=== PATIENT | female | born 1950 | race African-American/Black ===

== ENCOUNTER → 2020-12-02 14:12 | Outpatient (BNVA) | payer OTHER, SELFPAY | PROVIDERS: Visit Provider Hospitalist | DX: Z13.89 Encounter for screening for other disorder (principal) | CPT/HCPCS: Q3014 ==

== ENCOUNTER 2020-12-04 16:12 | Outpatient (REF) | payer MEDICARE, SELFPAY ==
--- NOTE | ~2020-12-04 | XR_ITS ---
EXAMINATION: XR CHEST CLINICAL INFORMATION: Sequelae of an infectious or other parasitic diseases. COMPARISON: None TECHNIQUE: 2 views of the chest were obtained. FINDINGS: No significant abnormality is noted involving the heart, lungs, mediastinum, bony thorax or soft tissues. XR/XR chest 2V IMPRESSION: No acute cardiopulmonary process.
[2020-12-04 17:10] LABS: MANUAL DIFF FLAG NO
[2020-12-04 17:15] LABS: Basophils Absolute Auto 0.1 X10*3/uL (0.0-0.2); Eosinophils Absolute Auto 0.4 X10*3/uL (0.0-0.4); Eosinophils Percent Auto 3.3 % (0-4); Hematocrit 42.3 % (37-47); Hemoglobin 14.5 g/dl (12.0-16.0); Imm Gran Abs Auto 0.04 X10*3/uL (0.00-0.03); Imm Gran Pct Auto 0.4 % (0.0-0.4); Lymphocytes Absolute Auto 3.3 X10*3/uL (1.2-4.9); Lymphocytes Percent Auto 31.7 % (20-40); Mean Corpuscular HGB Conc 34.3 g/dl (31.0-35.0); Mean Corpuscular Hemoglobin 31.2 pg (27.0-33.0); Mean Platelet Volume 11.4 fL (9.4-12.3); Monocytes Percent Auto 9.2 % (2-11); Neutrophils Absolute Auto 5.7 X10*3/uL (2.0-8.3); Neutrophils Percent Auto 54.4 % (45-73); Platelet Count 284 X10*3/uL (160-400); Red Blood Count 4.65 X10*6/uL (4.20-5.50); Red Cell Distribution Width 12.9 % (11.0-16.0); White Blood Count 10.5 X10*3/uL (4.8-10.8)
[2020-12-04 18:10] LABS: Erythrocyte Sedimentation Rate 7 MM/HR (0-20)
[2020-12-05 04:11] LABS: SARS COV2 IgG Positive (Negative)
== END 2020-12-04 16:13 | disposition home or self-care (01) ==
LOC: HO.LAB 16:12
PROVIDERS: Visit Provider Hospitalist
DX: Z20.822 Contact with and (suspected) exposure to COVID-19 (principal); B94.8 Sequelae of other specified infectious and parasitic diseases
CPT/HCPCS: 36415; 71046; 85025; 85652; 86769

== ENCOUNTER → 2021-04-02 13:04 | Outpatient (BNVA) | payer MEDICARE, SELFPAY | PROVIDERS: Visit Provider Hospitalist | DX: J45.40 Moderate persistent asthma, uncomplicated (principal); I27.82 Chronic pulmonary embolism; G47.33 Obstructive sleep apnea (adult) (pediatric); Z99.89 Dependence on other enabling machines and devices | CPT/HCPCS: 99212 ==

== ENCOUNTER → 2021-10-08 12:49 | Outpatient (BNVA) | payer MEDICARE, SELFPAY | PROVIDERS: PCP Internal Medicine; Visit Provider Hospitalist | DX: J45.40 Moderate persistent asthma, uncomplicated (principal); I27.82 Chronic pulmonary embolism; G47.33 Obstructive sleep apnea (adult) (pediatric); Z99.89 Dependence on other enabling machines and devices | CPT/HCPCS: 99212 ==

== ENCOUNTER → 2022-02-04 13:25 | Outpatient (BNVA) | payer MEDICARE, SELFPAY | PROVIDERS: PCP Internal Medicine; Visit Provider Hospitalist | DX: J45.40 Moderate persistent asthma, uncomplicated (principal); I27.82 Chronic pulmonary embolism; G47.33 Obstructive sleep apnea (adult) (pediatric); Z79.01 Long term (current) use of anticoagulants; Z79.899 Other long term (current) drug therapy; Z99.89 Dependence on other enabling machines and devices | CPT/HCPCS: 99212 ==

== ENCOUNTER → 2022-10-07 13:43 | Outpatient (BNVA) | payer OTHER, SELFPAY | PROVIDERS: PCP Internal Medicine; Visit Provider Hospitalist | DX: J45.40 Moderate persistent asthma, uncomplicated (principal); I27.82 Chronic pulmonary embolism; G47.33 Obstructive sleep apnea (adult) (pediatric); Z79.899 Other long term (current) drug therapy; Z99.89 Dependence on other enabling machines and devices | CPT/HCPCS: 99212 ==

== ENCOUNTER 2023-07-22 09:26 | Outpatient (AMB) | payer OTHER, SELFPAY ==
[2023-07-22 09:41] VITALS: PULSE 86; O2SAT 98; BMI 30.4
--- NOTE | 2023-07-22 09:41 | A.OFFVIS_ITS ---
Intake Vital Signs 07/22/23 09:41 Height 4 ft 11 in Weight 150 lb 9.211 oz BMI 30.4 Pulse 86 Pulse Source Pulse Oximeter Pulse Oximetry (%) 98 Oxygen Delivery Method Room Air Intake Visit Reasons: Asthma Allergies acetaminophen [Percocet] Allergy (Severe, Verified 07/22/23 09:43) Rash and Vomitting apixaban Allergy (Severe, Verified 07/22/23 09:43) Rash and Vomitting metformin Allergy (Severe, Verified 07/22/23 09:43) Anaphylaxis oxycodone [Percocet] Allergy (Severe, Verified 07/22/23 09:43) Anaphylaxis rivaroxaban [Xarelto] Allergy (Severe, Verified 07/22/23 09:43) Anaphylaxis Codeine Allergy (Severe, Uncoded 07/22/23 09:43) Anaphylaxis morphine Allergy (Severe, Uncoded 07/22/23 09:43) Anaphylaxis Tramadol Allergy (Severe, Uncoded 07/22/23 09:43) Anaphylaxis HPI HPI Comments History of Present Illness Details The patient is 72 y/o woman with a 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 She has failed Coumadin in also Xarelto in Eliquis primarily due to side effects which include severe headaches. Current meds she is on fondaparinux with very good effect. Her respiratory status has been stable. She does have a history of asthma and has a short-acting beta agonist at that she uses as needed. She has not had to use it in the last few weeks. Her major issue is that she hurt her left shoulder. She did have an MRI demonstrating what appears to be a full tear of the supraspinatus tendon. She is following up with her orthopedic surgeon tomorrow about potentially having surgery. She is very concerned about having surgery at this time. 05/28/2020 the patient is here for pulmonary follow-up visit. Her resp iratory status has significantly improved when she was switched over to the trelegy inhaler. She has not had to use her rescue inhaler at this time. She continues to have shortness of breath at times. She also has aches in her calves that have to do with her varicose veins. 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 She has been taking the fondaparinux with very good effect. She does not have any significant side effects like she did with the other medications. She continues uses CPAP therapy. The CPAP therapy continues to be affecting beneficial. She does use it for more than 4 hours a night. However, she needs a new mask. Based on the fact that she once a fullface mask I will request an F30 mask for her. 12/02/2020 the patient has a telephone visit today. She recently recovered from COVID-19. She was admitted with pneumonia to the hospital and did require oxygen for appeared of time. She also was told she had evidence of clotting. She had been on the fondaparinux. She seems to respond well to this injection for her history of hypercoagulable state. In the meantime the patient has been using her CPAP. The CPAP therapy continues to be affecting beneficial. She does use it for more than 4 hours a night. However, after having COVID she was concerned about contaminating the machine. She also was staining [place] when she was in quarantine and she needs to get her electric blood for the CPAP so she can start using it. In the meantime she needs to have a new mask and tubing sent after having COVID and concerns of a contamination. She use requesting a smaller mask, p10. Will request that from the [facility]. She will have blood work in addition to chest x-ray whenever she can come into the hospital safely get those done. 10/08/2021 the patient is here for pulmonary follow-up visit. Since we last spoke the patient has been doing relatively well from a respiratory status. The Trelegy has been very effective for her. She rarely has to use her rescue inhaler. She continues on the antithrombotic therapy for her history of recurrent blood clots. She does have significant varicose veins and is complaining of significant right lower extremity discomfort at this time. She does not have a cord. The patient has not had any evidence of any recurrent c lots while taking the fondaparinux. in the meantime she was not able to get a new CPAP. Has not been 5 years. The patient did bring her CPAP and and I adjusted the pressures some. Also provide her with a different mask, F30 small the seems to work better for her. 02/04/2022 the patient is here for a pulmonary follow-up visit. She continues doing well from a respiratory status. She continues on the inhalers which she is tolerating well. Has not had to use any rescue medication on prednisone. The patient continues on the fondaparinux with good effect. No evidence of any recurrent blood clots. She recently did have interventions for her veins and has discomfort at this time. But nothing that she has had before. She is using the CPAP at nighttime. Unfortunate CPAP is no longer working appropriately. She did call her insurance company in spoke to her counseling case manager and they were trying to assist her in order to get a new CPAP. I will put in a new order to get any CPAP based on the malfunctioning machine. Her machine is also a [employer] it is likely also in the recall. Therefore did provide her with a number to [employer] or she can call and claim a replacement machine as well. This process may take up to a year. 10/07/2022 the patient is here for a pulmonary follow-up visit. Since we last spoke the patient has been admitted to the hospital couple times. One was for the flu which she developed significant symptoms. Also she was admitted with dizziness would appear to be benign positional vertigo. Those symptoms have now received subsided. She is back to her baseline. The patient has responded well to her current respiratory regimen which includes Trelegy. She has not required any short-acting beta agonist. Except when she had the flu. The patient also has been using her CPAP. The CPAP therapy continues to be affecting beneficial. However, she is having difficulties with her mask. I did provide her with a different fullface mask, F20 small which seems to fit her very well and I do believe she would do better with. She did bring her machine but the cord was not available to turn it on in adjusted. If the patient has any difficulty after trying a new mask that she can always make an appointment in bring her machine in so we can adjust that. The patient also continues with the fondaparinux for history of unprovoked PE as well as lower extremity DVTs. She has responded very well to this medicine. 07/22/2023 the patient is here for a pulmonary follow-up visit. Patient overall has been doing well. She continues on the fondaparinux. The fundal paradox has been very helpful. She takes 5 mg daily. However, sometimes she takes breaks from the shots because they hurt. Sometimes she stops for a week and she is gone up to 2 weeks without taking the shots. But, then she starts developing again soreness of her legs and calves and thighs like she typically had when she had blood clots. Therefore she understands that she needs to be on the shots in this are lifelong since she is had multiple recurrent clots already. One option as far as continuing the prophylactic dose of fondaparinux she can try taking it every other day as it has been shown to be prophylactically helpful when using this fashion. However, if she does develop any symptoms or signs of clots then she needs to start taking it daily. the patient also continues hears her CPAP the CPAP therapy continues to be affecting beneficial. Although, she is no longer getting supplies from the [employer] company. The patient is no longer active with a [employer] company and therefore the only way for her to get supplies again would be to reorder the sleep study. Therefore, will have her undergo home sleep study at this time. Once we document again that she has sleep apnea based on the study we can then request supplies from the [facility]. As far as her asthma seems to be well controlled right now she does have a rescue inhaler that she has not required. She continues use Trelegy daily. Although, does complain of worsening allergy symptoms. [facility] Medical History (Updated 07/24/23 @ 22:09 by Jones Goel MD) Chronic allergic rhinitis Asthma Pulmonary emboli RICCARDO on CPAP Post-COVID syndrome Social History (Updated 04/02/21 @ 13:19 by MICHELLE Campo) Patient Tobacco Use Status: Never used Tobacco Review of Systems Const Denies night sweats ENT Denies change in voice, Denies lip swelling, Denies mouth pain, Reports nasal congestion, Reports nasal discharge and Denies tongue swelling Card Denies chest pain Resp Reports cough GI Denies abdominal pain Musc Denies no additional complaints Neuro Denies Neuro-related abnormal movements Psych Denies no additional complaints Aguilar/Lymph Denies easy bleeding and Denies lymphadenopathy Aller/Immun Denies lip swelling and Denies tongue swelling Physical Exam Vital Signs: Last Vital Signs Pulse 86 07/22/23 09:41 Pulse Ox 98 07/22/23 09:41 Oxygen Delivery Method Room Air 07/22/23 09:41 BMI result Body Mass Index 30.4 Const General: alert Neck Neck: Yes normal visual inspection, Yes full ROM and Yes no lymphadenopathy Chest Chest palpation & inspection: normal inspection of the chest Resp Auscultation: clear to auscultation bilaterally Cardio Rate: regular rate Rhythm: regular rhythm Heart sounds: S1 normal heart sound present and S2 normal heart sound present GI Palpation (GI): Soft to palpation and nontender Auscultation: normal bowel sounds Skin General skin exam: rashes and/or lesions noted Assessment & Plan Assessment & Plan (1) Asthma: Code(s): J45.909 - Unspecified asthma, uncomplicated Qualifiers: Asthma complication type: uncomplicated Asthma persistence: persistent Asthma severity: moderate Qualified Code(s): J45.40 - Moderate persistent asthma, uncomplicated (2) Pulmonary emboli: Code(s): I26.99 - Other pulmonary embolism without acute cor pulmonale Qualifiers: Acute cor pulmonale presence: without acute cor pulmonale Chronicity: chronic Pulmonary embolism type: unspecified Qualified Code(s): I27.82 - Chronic pulmonary embolism (3) RICCARDO on CPAP: Code(s): G47.33 - Obstructive sleep apnea (adult) (pediatric); Z99.89 - Dependence on other enabling machines and devices (4) Chronic allergic rhinitis: Code(s): J30.9 - Allergic rhinitis, unspecified Plan continues CPAP therapy, provided with a new mask F20 small. Needs a home sleep sudy re activate with a [facility] [facility] for the CPAP supplies. continue Trelegy 100 daily short-acting beta agonist as needed continue singular and Claritin Bloodwork/allergy testing continue fondaparinux, trial every other day follow-up in 6-8 months Orders: Orders Basic Metabolic Panel 07/22/23 J45.909 - Unspecified asthma, uncomplicated Immunoglobulin E 07/22/23 J45.909 - Unspecified asthma, uncomplicated RT home sleep study 07/22/23 G47.33 - Obstructive sleep apnea (adult) (pediatric), Z99.89 - Dependence on other enabling machines and devices Complete Blood Count Auto Diff 07/22/23 J45.909 - Unspecified asthma, uncomplicated Rast Allergen 07/22/23 J45.909 - Unspecified asthma, uncomplicated Hypersensitive Pneumonitis Prf 07/22/23 J45.909 - Unspecified asthma, uncomplicated, R91.8 - Other nonspecific abnormal finding of lung field Coding Level of Care Code Est Pt Level 4 (61290) Diagnoses Moderate persistent asthma without complication J45.40 Asthma complication type: uncomplicated Asthma persistence: persistent Asthma severity: moderate Chronic pulmonary embolism without acute cor pulmonale, unspecified pulmonary embolism type I27.82 Acute cor pulmonale presence: without acute cor pulmonale Chronicity: chronic Pulmonary embolism type: unspecified RICCARDO on CPAP G47.33; Z99.89 Chronic allergic rhinitis J30.9 Time Spent (min) 17
== END 2023-07-22 10:22 | disposition home or self-care (01) ==
PROVIDERS: PCP Internal Medicine; Visit Provider Hospitalist
DX: J45.40 Moderate persistent asthma, uncomplicated (principal); I27.82 Chronic pulmonary embolism; G47.33 Obstructive sleep apnea (adult) (pediatric); Z99.89 Dependence on other enabling machines and devices; J30.9 Allergic rhinitis, unspecified
CPT/HCPCS: 99214

== ENCOUNTER 2023-07-22 09:26 | Outpatient (REF) | payer OTHER, SELFPAY ==
[2023-07-22 10:36] LABS: MANUAL DIFF FLAG NO
[2023-07-22 11:08] LABS: Basophils Absolute Auto 0.1 X10*3/uL (0.0-0.2); Basophils Percent Auto 0.8 % (0-2); Eosinophils Absolute Auto 0.3 X10*3/uL (0.0-0.4); Eosinophils Percent Auto 2.7 % (0-4); Hematocrit 43.5 % (37.0-47.0); Hemoglobin 14.9 g/dl (12.0-16.0); Imm Gran Abs Auto 0.03 X10*3/uL (0.00-0.03); Imm Gran Pct Auto 0.3 % (0.0-0.4); Lymphocytes Absolute Auto 3.1 X10*3/uL (1.2-4.9); Lymphocytes Percent Auto 28.8 % (20-40); Mean Corpuscular HGB Conc 34.3 g/dl (31.0-35.0); Mean Corpuscular Volume 90.4 fL (80.0-98.0); Mean Platelet Volume 11.2 fL (9.4-12.3); Monocytes Absolute Auto 0.8 X10*3/uL (0.1-1.2); Monocytes Percent Auto 7.1 % (2-11); Neutrophils Absolute Auto 6.6 x10*3/uL (2.0-8.3); Neutrophils Percent Auto 60.3 % (45-73); Platelet Count 272 X10*3/uL (160-400); Red Blood Count 4.81 X10*6/uL (4.20-5.50); Red Cell Distribution Width 12.5 % (11.0-16.0); White Blood Count 10.9 X10*3/uL (4.8-10.8)
[2023-07-22 11:36] LABS: Anion Gap 14 (12-20); Blood Urea Nitrogen 18 mg/dL (9-16); Calcium 9.1 mg/dL (8.4-10.2); Carbon Dioxide 21 mmol/L (22-29); Chloride 108 mmol/L (96-108); Estimated Glomerular Filt Rate > 60; Glucose Random 128 mg/dL (60-115); Potassium 4.2 mmol/L (3.3-5.1); Sodium 139 mmol/L (135-145)
[2023-07-25 18:43] LABS: Immunoglobulin E 164 kU/L (<OR=114)
[2023-07-30 16:28] LABS: Asperg fumigatus Precip Abs NEGATIVE (NEGATIVE); Micropoly faeni Abs NEGATIVE (NEGATIVE); Pigeon serum Abs NEGATIVE (NEGATIVE); Saccharo pora viridis Abs NEGATIVE (NEGATIVE); Thermo candidus Abs NEGATIVE (NEGATIVE); Thermoa vulgaris #1 NEGATIVE (NEGATIVE)
== END 2023-07-22 09:27 | disposition home or self-care (01) ==
LOC: HO.LAB 09:26
PROVIDERS: PCP Internal Medicine; Visit Provider Hospitalist
DX: J45.909 Unspecified asthma, uncomplicated (principal); R91.8 Other nonspecific abnormal finding of lung field; Z91.09 Other allergy status, other than to drugs and biological substances
CPT/HCPCS: 36415; 80048; 82785; 85025; 86003; 86331; 86606; 86609; 99212

== ENCOUNTER → 2023-08-31 15:22 | Outpatient (REF) | payer OTHER, SELFPAY | LOC: HO.SL 15:22 | PROVIDERS: PCP Internal Medicine; Visit Provider Hospitalist | DX: G47.33 Obstructive sleep apnea (adult) (pediatric) (principal); Z99.89 Dependence on other enabling machines and devices | CPT/HCPCS: 95806 ==

== ENCOUNTER → 2023-08-31 15:39 | Outpatient (BNV) | payer OTHER, SELFPAY | PROVIDERS: PCP Internal Medicine; Visit Provider Internal Medicine | DX: R06.83 Snoring (principal) | CPT/HCPCS: 95806 ==

== ENCOUNTER 2024-01-10 14:36 | Outpatient (AMB) | payer OTHER, SELFPAY ==
[2024-01-10 14:52] VITALS: PULSE 80; O2SAT 95; BMI 27.3
--- NOTE | 2024-01-10 14:52 | MHC.OFFVIS ---
Intake Vital Signs 01/10/24 14:52 Height 4 ft 11 in Weight 135 lb BMI 27.3 Pulse 80 Pulse Source Pulse Oximeter Pulse Oximetry (%) 95 Oxygen Delivery Method Room Air Intake Visit Reasons: Obstructive sleep apnea [employer] Required: No Allergies acetaminophen [Percocet] Allergy (Severe, Verified 01/10/24 14:53) Rash and Vomitting apixaban Allergy (Severe, Verified 01/10/24 14:53) Rash and Vomitting metformin Allergy (Severe, Verified 01/10/24 14:53) Anaphylaxis oxycodone [Percocet] Allergy (Severe, Verified 01/10/24 14:53) Anaphylaxis rivaroxaban [Xarelto] Allergy (Severe, Verified 01/10/24 14:53) Anaphylaxis Codeine Allergy (Severe, Uncoded 01/10/24 14:53) Anaphylaxis morphine Allergy (Severe, Uncoded 01/10/24 14:53) Anaphylaxis Tramadol Allergy (Severe, Uncoded 01/10/24 14:53) Anaphylaxis HPI HPI Comments History of Present Illness Details The patient is 73 y/o woman with a 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 She has failed Coumadin in also Xarelto in Eliquis primarily due to side effects which include severe headaches. Current meds she is on fondaparinux with very good effect. Her respiratory status has been stable. She does have a history of asthma and has a short-acting beta agonist at that she uses as needed. She has not had to use it in the last few weeks. Her major issue is that she hurt her left shoulder. She did have an MRI demonstrating what appears to be a full tear of the supraspinatus tendon. She is following up with her orthopedic surgeon tomorrow about potentially having surgery. She is very concerned about having surgery at this time. 07/22/2023 the patient is here for a pulmonary follow-up visit. Patient overall has been doing well. She continues on the fondaparinux. The fundal paradox has been very helpful. She takes 5 mg daily. However, sometimes she takes breaks from the shots because they hurt. Sometimes she stops for a week and she is gone up to 2 weeks without taking the shots. But, then she starts developing again soreness of her legs and calves and thighs like she typically had when she had blood clots. Therefore she understands that she needs to be on the shots in this are lifelong since she is had multiple recurrent clots already. One option as far as continuing the prophylactic dose of fondaparinux she can try taking it every other day as it has been shown to be prophylactically helpful when using this fashion. However, if she does develop any symptoms or signs of clots then she needs to start taking it daily. the patient also continues hears her CPAP the CPAP therapy continues to be affecting beneficial. Although, she is no longer getting supplies from the [employer]. The patient is no longer active with a [employer] and therefore the only way for her to get supplies again would be to reorder the sleep study. Therefore, will have her undergo home sleep study at this time. Once we document again that she has sleep apnea based on the study we can then request supplies from the [employer]. As far as her asthma seems to be well controlled right now she does have a rescue inhaler that she has not required. She continues use Trelegy daily. Although, does complain of worsening allergy symptoms. 01/10/2024 the patient is here for pulmonary follow-up visit. Since we last spoke the patient had a bad fall and she was admitted to the hospital. She fractured her right humerus. History of she CT she on the blood tolerating well. She had another fall hurting her leg. She was all booster. No DVT documented which is reassuring. She continues on the fondaparinux. Now after the fall she has been taking it daily. She is unsteady in her feet. She is going to be following up with her primary care doctor. She needs to make sure to ask for a cane review of her unsteadiness on her feet. She is high risk because of the blood thinners. She needs be very careful. The patient also has been using the CPAP. The CPAP therapy very affecting beneficial for her. She does try to use it more than 4 hours a night. However, she has no longer active with the [employer]. We tried ordering a sleep study but she had a hard time setting it up. The sleep study which was a home sleep study did not demonstrate any evidence of any sleep apnea. Although very limited without any evidence of any obstructions at all. Therefore believe the patient did not have an optimal study and she did not set up right. I am going to request an in-lab sleep study for that reason. She does have daytime drowsiness when she does not use CPAP. Her [place] score is elevated 12/24 when she does not use CPAP. [facility] Medical History (Updated 07/24/23 @ 22:09 by Jones Goel MD) Chronic allergic rhinitis Asthma Pulmonary emboli RICCARDO on CPAP Post-COVID syndrome Social History (Updated 04/02/21 @ 13:19 by MICHELLE Campo) Patient Tobacco Use Status: Never used Tobacco Review of Systems Const Reports frequent falls and Denies night sweats ENT Denies change in voice, Denies lip swelling, Denies mouth pain, Reports nasal congestion, Reports nasal discharge and Denies tongue swelling Card Denies chest pain Resp Reports cough GI Denies abdominal pain Musc Denies no additional complaints and Reports abnormal gait Neuro Denies Neuro-related abnormal movements, Reports abnormal gait and Reports frequent falls Psych Denies no additional complaints Aguilar/Lymph Denies easy bleeding and Denies lymphadenopathy Aller/Immun Denies lip swelling and Denies tongue swelling Physical Exam Vital Signs: Last Vital Signs Pulse 80 01/10/24 14:52 Pulse Ox 95 01/10/24 14:52 Oxygen Delivery Method Room Air 01/10/24 14:52 BMI result Body Mass Index 27.3 Const General: alert Neck Neck: Yes normal visual inspection, Yes full ROM and Yes no lymphadenopathy Chest Chest palpation & inspection: normal inspection of the chest Resp Auscultation: clear to auscultation bilaterally Cardio Rate: regular rate Rhythm: regular rhythm Heart sounds: S1 normal heart sound present and S2 normal heart sound present GI Palpation (GI): Soft to palpation and nontender Auscultation: normal bowel sounds Skin General skin exam: rashes and/or lesions noted Assessment & Plan Assessment & Plan (1) Asthma: Code(s): J45.909 - Unspecified asthma, uncomplicated Qualifiers: Asthma complication type: uncomplicated Asthma persistence: persistent Asthma severity: moderate Qualified Code(s): J45.40 - Moderate persistent asthma, uncomplicated (2) Pulmonary emboli: Code(s): I26.99 - Other pulmonary embolism without acute cor pulmonale Qualifiers: Acute cor pulmonale presence: without acute cor pulmonale Chronicity: chronic Pulmonary embolism type: unspecified Qualified Code(s): I27.82 - Chronic pulmonary embolism (3) RICCARDO on CPAP: Code(s): G47.33 - Obstructive sleep apnea (adult) (pediatric); Z99.89 - Dependence on other enabling machines and devices (4) Chronic allergic rhinitis: Code(s): J30.9 - Allergic rhinitis, unspecified Plan continues CPAP therapy, provided with a new mask F20 small. Needs a sleep sudy re activate with a [employer] for the CPAP supplies. continue Trelegy 100 daily short-acting beta agonist as needed continue singular and Claritin allergy avoidance continue fondaparinux, every other day is ok follow-up in 3-4 months Orders: Orders RT PSG in-lab sleep study Today G47.33 - Obstructive sleep apnea (adult) (pediatric), Z99.89 - Dependence on other enabling machines and devices Coding Level of Care Code Est Pt Level 4 (74566) Diagnoses Moderate persistent asthma without complication J45.40 Asthma complication type: uncomplicated Asthma persistence: persistent Asthma severity: moderate Chronic pulmonary embolism without acute cor pulmonale, unspecified pulmonary embolism type I27.82 Acute cor pulmonale presence: without acute cor pulmonale Chronicity: chronic Pulmonary embolism type: unspecified RICCARDO on CPAP G47.33; Z99.89 Chronic allergic rhinitis J30.9 Time Spent (min) 17
== END 2024-01-10 15:20 | disposition home or self-care (01) ==
PROVIDERS: PCP Internal Medicine; Visit Provider Internal Medicine
DX: J45.40 Moderate persistent asthma, uncomplicated (principal); I27.82 Chronic pulmonary embolism; G47.33 Obstructive sleep apnea (adult) (pediatric); Z99.89 Dependence on other enabling machines and devices; J30.9 Allergic rhinitis, unspecified
CPT/HCPCS: 99214

== ENCOUNTER → 2024-01-10 14:36 | Outpatient (BNVA) | payer OTHER, SELFPAY | PROVIDERS: PCP Internal Medicine; Visit Provider Internal Medicine | DX: J45.40 Moderate persistent asthma, uncomplicated (principal); J30.9 Allergic rhinitis, unspecified | CPT/HCPCS: 99212 ==

== ENCOUNTER → 2024-02-13 20:30 | Outpatient (REF) | payer OTHER, SELFPAY | LOC: HO.SL 20:30 | PROVIDERS: Visit Provider Hospitalist | DX: G47.33 Obstructive sleep apnea (adult) (pediatric) (principal); Z99.89 Dependence on other enabling machines and devices | CPT/HCPCS: 95810 ==

== ENCOUNTER → 2024-02-13 20:58 | Outpatient (BNV) | payer OTHER, SELFPAY | PROVIDERS: Visit Provider Internal Medicine | DX: R06.83 Snoring (principal) | CPT/HCPCS: 95810 ==

== ENCOUNTER 2024-08-23 13:49 | Outpatient (AMB) | payer OTHER, SELFPAY ==
--- NOTE | 2024-08-23 14:05 | A.OFFVIS_ITS ---
Vital Signs 08/23/24 14:06 Weight 138 lb 14.259 oz BP 126/66 Blood Pressure Location Lt brachial Position Sitting Pulse 87 Pulse Source Pulse Oximeter Pulse Oximetry (%) 97 Oxygen Delivery Method Room Air Intake Visit Reasons: riccardo Allergies acetaminophen [Percocet] Allergy (Severe, Verified 08/23/24 14:10) Rash and Vomitting apixaban Allergy (Severe, Verified 08/23/24 14:10) Rash and Vomitting metformin Allergy (Severe, Verified 08/23/24 14:10) Anaphylaxis oxycodone [Percocet] Allergy (Severe, Verified 08/23/24 14:10) Anaphylaxis rivaroxaban [Xarelto] Allergy (Severe, Verified 08/23/24 14:10) Anaphylaxis Codeine Allergy (Severe, Uncoded 08/23/24 14:10) Anaphylaxis morphine Allergy (Severe, Uncoded 08/23/24 14:10) Anaphylaxis Tramadol Allergy (Severe, Uncoded 08/23/24 14:10) Anaphylaxis Medication List - Last Reconciled 08/23/24 by Myrtle Maynard LPN acetaminophen ER 650 mg PO BID albuterol sulfate 2.5 mg (3 mL) inhalation Q4H PRN aspirin 81 mg PO DAILY atorvastatin 20 mg PO DAILY calcium carbonate-vitamin D3 600 mg-20 mcg (800 unit) 1 tab PO BID cholecalciferol (vitamin D3) 50 mcg PO DAILY cholecalciferol (vitamin D3) 50 mcg PO DAILY comp.stocking,thigh,long,small As directed CPAP (CPAP Machine/Device) As directed diclofenac potassium mg PO DAILY docusate sodium 0 mg PO fluoxetine 20 mg PO QAM fluticasone propionate 50 mcg/actuation 1 spray intranasal DAILY sgvodxumtyy-hlnqrjbbb-lkbtioor 100-62.5-25 mcg (Trelegy Ellipta) 1 ea PO DAILY fondaparinux 5 mg (0.4 mL) subcut .EVERY OTHER DAY 30 days gabapentin 0 mg PO gabapentin mg PO ketotifen fumarate 0.025%(0.035%) 1 drp ophthalmic (eye) lisinopril 10 mg PO DAILY loratadine 10 mg PO DAILY montelukast 10 mg PO BEDTIME nebulizers As directed omega 2-jgb-qzm-fish oil 1,000 mg (120 mg-180 mg) 1 cap PO BID omeprazole 40 mg PO DAILY pyridoxine (vitamin B6) 50 mg PO DAILY sitagliptin phosphate 100 mg PO DAILY sodium chloride 0.9% 1 spray intranasal BID PRN 30 days Ventolin HFA 90 mcg/actuation (albuterol sulfate) 2 puffs PO Q6H PRN NS HPI Comments Details: The patient is 73 y/o woman with a 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 She has failed Coumadin in also Xarelto in Eliquis primarily due to side effects which include severe headaches. Current meds she is on fondaparinux with very good effect. Her respiratory status has been stable. She does have a history of asthma and has a short-acting beta agonist at that she uses as needed. She has not had to use it in the last few weeks. Her major issue is that she hurt her left shoulder. She did have an MRI demonstrating what appears to be a full tear of the supraspinatus tendon. She is following up with her orthopedic surgeon tomorrow about potentially having surgery. She is very concerned about having surgery at this time. 05/28/2020 the patient is here for pulmonary follow-up visit. Her respiratory status has significantly improved when she was switched over to the trelegy inhaler. She has not had to use her rescue inhaler at this time. She continues to have shortness of breath at times. She also has aches in her calves that have to do with her varicose veins. 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 She has been taking the fondaparinux with very good effect. She does not have any significant side effects like she did with the other medications. She continues uses CPAP therapy. The CPAP therapy continues to be affecting beneficial. She does use it for more than 4 hours a night. However, she needs a new mask. Based on the fact that she once a fullface mask I will request an F30 mask for her. 12/02/2020 the patient has a telephone visit today. She recently recovered from COVID-19. She was admitted with pneumonia to the hospital and did require oxygen for appeared of time. She also was told she had evidence of clotting. She had been on the fondaparinux. She seems to respond well to this injection for her history of hypercoagulable state. In the meantime the patient has been using her CPAP. The CPAP therapy continues to be affecting beneficial. She does use it for more than 4 hours a night. However, after having COVID she was concerned about contaminating the machine. She also was staining [place] when she was in quarantine and she needs to get her electric blood for the CPAP so she can start using it. In the meantime she needs to have a new mask and tubing sent after having COVID and concerns of a contamination. She use requesting a smaller mask, p10. Will request that from the [employer]. She will have blood work in addition to chest x-ray whenever she can come into the hospital safely get those done. 10/08/2021 the patient is here for pulmonary follow-up visit. Since we last spoke the patient has been doing relatively well from a respiratory status. The Trelegy has been very effective for her. She rarely has to use her rescue inhaler. She continues on the antithrombotic therapy for her history of recurrent blood clots. She does have significant varicose veins and is complaining of significant right lower extremity discomfort at this time. She does not have a cord. The patient has not had any evidence of any recurrent clots while taking the fondaparinux. in the meantime she was not able to get a new CPAP. Has not been 5 years. The patient did bring her CPAP and and I adjusted the pressures some. Also provide her with a different mask, F30 small the seems to work better for her. 02/04/2022 the patient is here for a pulmonary follow-up visit. She continues doing well from a respiratory status. She continues on the inhalers which she is tolerating well. Has not had to use any rescue medication on prednisone. The patient continues on the fondaparinux with good effect. No evidence of any recurrent blood clots. She recently did have interventions for her veins and has discomfort at this time. But nothing that she has had before. She is using the CPAP at nighttime. Unfortunate CPAP is no longer working appropriately. She did call her insurance company in spoke to her case management social worker and they were trying to assist her in order to get a new CPAP. I will put in a new order to get any CPAP based on the malfunctioning machine. Her machine is also a [employer] it is likely also in the recall. Therefore did provide her with a number to [employer] or she can call and claim a replacement machine as well. This process may take up to a year. 10/07/2022 the patient is here for a pulmonary follow-up visit. Since we last spoke the patient has been admitted to the hospital couple times. One was for the flu which she developed significant symptoms. Also she was admitted with d robynness would appear to be benign positional vertigo. Those symptoms have now received subsided. She is back to her baseline. The patient has responded well to her current respiratory regimen which includes Trelegy. She has not required any short-acting beta agonist. Except when she had the flu. The patient also has been using her CPAP. The CPAP therapy continues to be affecting beneficial. However, she is having difficulties with her mask. I did provide her with a different fullface mask, F20 small which seems to fit her very well and I do believe she would do better with. She did bring her machine but the cord was not available to turn it on in adjusted. If the patient has any difficulty after trying a new mask that she can always make an appointment in bring her machine in so we can adjust that. The patient also continues with the fondaparinux for history of unprovoked PE as well as lower extremity DVTs. She has responded very well to this medicine. 07/22/2023 the patient is here for a pulmonary follow-up visit. Patient overall has been doing well. She continues on the fondaparinux. The fundal paradox has been very helpful. She takes 5 mg daily. However, sometimes she takes breaks from the shots because they hurt. Sometimes she stops for a week and she is gone up to 2 weeks without taking the shots. But, then she starts developing again soreness of her legs and calves and thighs like she typically had when she had blood clots. Therefore she understands that she needs to be on the shots in this are lifelong since she is had multiple recurrent clots already. One option as far as continuing the prophylactic dose of fondaparinux she can try taking it every other day as it has been shown to be prophylactically helpful when using this fashion. However, if she does develop any symptoms or signs of clots then she needs to start taking it daily. the patient also continues hears her CPAP the CPAP therapy continues to be affecting beneficial. Although, she is no longer getting supplies from the [employer]. The patient is no longer active with a [employer] company and therefore the only way for her to get supplies again would be to reorder the sleep study. Therefore, will have her undergo home sleep study at this time. Once we document again that she has sleep apnea based on the study we can then request supplies from the [employer] company. As far as her asthma seems to be well controlled right now she does have a rescue inhaler that she has not required. She continues use Trelegy daily. Although, does complain of worsening allergy symptoms. 08/23/2024 the patient is here for a pulmonary follow-up visit. The patient fair. Significant discomfort primarily the right lower extremity which has significant venous disease. She has significant tenderness over the site which she has had history of DVT. She has been on the fondaparinux. She has been using it daily because of the pain and the concerns for blood clots. I believe that is a very good decision. Will go ahead and send a prescription for daily therapeutic dose as before will trying something more prophylactically since she had been doing well. She continues to sleep okay. She does wake up tired. She does have an elevated for of 09/16. Her last sleep study was back in 02/2024 demonstrating no evidence of any sleep apnea. She can consider repeating the sleep study in the future. Also she consider sleep hygiene. In addition to that she continues on the Trelegy inhaler which is very effective and beneficial. She will continue for now. She is looking into using some type of bandage for her lower extremity. She is having hard time with the compression stockings. I did recommend a vascular surgeon [place] so therefore she consider getting a vascular surgeon when she is situated in her new residence. [facility] Medical History (Updated 08/23/24 @ 22:11 by Jones Goel MD) DVT (deep venous thrombosis) Chronic allergic rhinitis Asthma Pulmonary emboli RICCARDO on CPAP Post-COVID syndrome Social History (Updated 04/02/21 @ 13:19 by MICHELLE Campo) Patient Tobacco Use Status: Never used Tobacco Review of Systems Const Reports daytime sleepiness, Reports difficulty sleeping and Denies night sweats ENT Denies change in voice, Denies lip swelling, Denies mouth pain, Reports nasal congestion, Reports nasal discharge and Denies tongue swelling Card Denies chest pain Resp Reports cough GI Denies abdominal pain Musc Denies no additional complaints and Reports myalgias Skin/Breast Reports skin swelling Neuro Denies Neuro-related abnormal movements Psych Denies no additional complaints Aguilar/Lymph Denies easy bleeding and Denies lymphadenopathy Aller/Immun Denies lip swelling and Denies tongue swelling Physical Exam Vital Signs: Last Vital Signs Pulse 87 08/23/24 14:06 BP 126/66 08/23/24 14:06 Pulse Ox 97 08/23/24 14:06 Oxygen Delivery Method Room Air 08/23/24 14:06 Const General: alert Neck Neck: Yes normal visual inspection, Yes full ROM and Yes no lymphadenopathy Chest Chest palpation & inspection: normal inspection of the chest Resp Auscultation: clear to auscultation bilaterally Cardio Rate: regular rate Rhythm: regular rhythm Heart sounds: S1 normal heart sound present and S2 normal heart sound present GI Palpation (GI): Soft to palpation and nontender Auscultation: normal bowel sounds Skin General skin exam: rashes and/or lesions noted Assessment & Plan Assessment & Plan (1) Asthma: Code(s): J45.909 - Unspecified asthma, uncomplicated Category: Medical Qualifiers: Asthma complication type: uncomplicated Asthma persistence: persistent Asthma severity: moderate Qualified Code(s): J45.40 - Moderate persistent a sthma, uncomplicated (2) Pulmonary emboli: Code(s): I26.99 - Other pulmonary embolism without acute cor pulmonale Category: Medical Qualifiers: Acute cor pulmonale presence: without acute cor pulmonale Chronicity: chronic Pulmonary embolism type: unspecified Qualified Code(s): I27.82 - Chronic pulmonary embolism (3) RICCARDO on CPAP: Code(s): G47.33 - Obstructive sleep apnea (adult) (pediatric); Z99.89 - Dependence on other enabling machines and devices Category: Medical (4) Chronic allergic rhinitis: Code(s): J30.9 - Allergic rhinitis, unspecified Category: Medical (5) DVT (deep venous thrombosis): Comment: resolved Code(s): I82.409 - Acute embolism and thrombosis of unspecified deep veins of unspecified lower extremity Category: Medical Qualifiers: Affected thrombotic vein of extremity: unspecified vein of extremity Chronicity: chronic DVT location: lower extremity Laterality: right Qualified Code(s): I82.501 - Chronic embolism and thrombosis of unspecified deep veins of right lower extremity Plan stopped CPAP based on nroaml sleep study. But now symptomatic. Consider repeating PSG in the near future continue Trelegy 100 daily short-acting beta agonist as needed continue singular and Claritin allergy avoidance continue fondaparinux, needs to back to daily compression stockings would benefit from a vascular surgery evaluation for her venous disease follow-up PRN as she is moving [place] a different state Medications: Changed From fondaparinux 5 mg (0.4 mL) subcut .EVERY OTHER DAY 30 days 15 ea 11RF To fondaparinux 5 mg (0.4 mL) subcut Q24H 30 ea 11RF 30 days From loratadine 10 mg PO DAILY 28 tabs 11RF To loratadine 10 mg PO DAILY 28 tabs 11RF 28 days From urwbdvtmsow-fnnchqcsp-zdybfxnp 100-62.5-25 mcg (Trelegy Ellipta) 1 ea PO DAILY 60 ea 3RF To dkbqvzknqhw-sdwwwuutn-jcdjijgm 100-62.5-25 mcg (Trelegy Ellipta) 1 ea PO DAILY 60 ea 11RF 30 days Refilled montelukast 10 mg PO BEDTIME 28 tabs 11RF albuterol sulfate 2.5 mg (3 mL) inhalation Q4H PRN 180 mL 11RF for wheezing J45.40 - Moderate persistent asthma, uncomplicated Coding Level of Care Code Est Pt Level 4 (63162) Complex EM visit Add On G2211 Diagnoses Moderate persistent asthma without complication J45.40 Asthma complication type: uncomplicated Asthma persistence: persistent Asthma severity: moderate Chronic pulmonary embolism without acute cor pulmonale, unspecified pulmonary embolism type I27.82 Acute cor pulmonale presence: without acute cor pulmonale Chronicity: chronic Pulmonary embolism type: unspecified RICCARDO on CPAP G47.33; Z99.89 Chronic allergic rhinitis J30.9 Chronic deep vein thrombosis (DVT) of right lower extremity, unspecified vein I82.501 Affected thrombotic vein of extremity: unspecified vein of extremity Chronicity: chronic DVT location: lower extremity Laterality: right Time Spent (min) 18
[2024-08-23 14:06] VITALS: BP 126/66; PULSE 87; O2SAT 97
== END 2024-08-23 14:30 | disposition home or self-care (01) ==
LOC: HO.HPS 13:49
PROVIDERS: Visit Provider Hospitalist
DX: J45.40 Moderate persistent asthma, uncomplicated (principal); I27.82 Chronic pulmonary embolism; G47.33 Obstructive sleep apnea (adult) (pediatric); Z99.89 Dependence on other enabling machines and devices; J30.9 Allergic rhinitis, unspecified; I82.501 Chronic embolism and thrombosis of unspecified deep veins of right lower extremity
CPT/HCPCS: 99214; G2211

== ENCOUNTER → 2024-08-23 13:49 | Outpatient (BNVA) | payer OTHER, SELFPAY | PROVIDERS: Visit Provider Hospitalist | DX: J45.40 Moderate persistent asthma, uncomplicated (principal); J30.9 Allergic rhinitis, unspecified; G47.33 Obstructive sleep apnea (adult) (pediatric); I27.82 Chronic pulmonary embolism; I82.501 Chronic embolism and thrombosis of unspecified deep veins of right lower extremity; Z99.89 Dependence on other enabling machines and devices | CPT/HCPCS: 99212 ==